=== PATIENT | male | born 1965 | race Caucasian/White ===

== ENCOUNTER → 2023-12-09 12:56 | Outpatient (REF) | payer BC, SELFPAY | LOC: RAD 12:56 | PROVIDERS: ATTENDING PHYSICIAN Surgery Vascular Surgery | DX: I65.23 Occlusion and stenosis of bilateral carotid arteries (principal) | CPT/HCPCS: 93880 ==

== ENCOUNTER → 2024-12-22 11:16 | Outpatient (REF) | payer BC, SELFPAY | LOC: DHVS 11:16 | PROVIDERS: ATTENDING PHYSICIAN Surgery Vascular Surgery | DX: I65.29 Occlusion and stenosis of unspecified carotid artery (principal) | CPT/HCPCS: 93880 ==